=== PATIENT | male | born 1990 | race Caucasian/White ===

== ENCOUNTER → 2016-08-25 | Outpatient (CLI) | payer OTHER ==
[~2016-08-25] MED LIST: AMOX1TAB16 PO; BACTDSB PO; CIPR-278 PO; MULT-71 PO; NITR50CA PO; RIFA300 PO
[2016-08-25 14:24] VITALS: BP 147/71
== END | disposition home or self-care (01) ==
LOC: HBOWC 14:08
PROVIDERS: ATTEND Emergency Medicine
DX: T86.821 Skin graft (allograft) (autograft) failure (principal); L89.314 Pressure ulcer of right buttock, stage 4; M86.8X8 Other osteomyelitis, other site; I10 Essential (primary) hypertension; G82.21 Paraplegia, complete; F17.210 Nicotine dependence, cigarettes, uncomplicated; Y83.2 Surgical operation with anastomosis, bypass or graft as the cause of abnormal reaction of the patient, or of later complication, without mention of misadventure at the time of the procedure
CPT/HCPCS: 97597

== ENCOUNTER → 2016-09-07 | Outpatient (CLI) | payer OTHER ==
[2016-09-07 14:44] VITALS: BP 137/73
== END | disposition home or self-care (01) ==
LOC: HBOWC 14:14
PROVIDERS: ATTEND Emergency Medicine
DX: T81.89XD Other complications of procedures, not elsewhere classified, subsequent encounter (principal); L89.314 Pressure ulcer of right buttock, stage 4; G82.20 Paraplegia, unspecified; I10 Essential (primary) hypertension; M86.8X8 Other osteomyelitis, other site; F17.210 Nicotine dependence, cigarettes, uncomplicated; Y83.8 Other surgical procedures as the cause of abnormal reaction of the patient, or of later complication, without mention of misadventure at the time of the procedure
CPT/HCPCS: 97597

== ENCOUNTER → 2016-09-21 | Outpatient (CLI) | payer OTHER ==
[~2016-09-21] MED LIST changes: -AMOX1TAB16 PO; -RIFA300 PO
[2016-09-21 14:35] VITALS: BP 145/65
== END | disposition home or self-care (01) ==
LOC: HBOWC 14:24
PROVIDERS: ATTEND Emergency Medicine
DX: T81.89XD Other complications of procedures, not elsewhere classified, subsequent encounter (principal); L89.314 Pressure ulcer of right buttock, stage 4; I10 Essential (primary) hypertension; F17.210 Nicotine dependence, cigarettes, uncomplicated; M86.8X7 Other osteomyelitis, ankle and foot; G82.20 Paraplegia, unspecified; Y83.8 Other surgical procedures as the cause of abnormal reaction of the patient, or of later complication, without mention of misadventure at the time of the procedure
CPT/HCPCS: 97597

== ENCOUNTER → 2016-10-05 | Outpatient (CLI) | payer OTHER ==
[~2016-10-05] MED LIST changes: +AMOX1TAB16 PO; +RIFA300 PO
[2016-10-05 15:35] VITALS: BP 130/57
== END | disposition home or self-care (01) ==
LOC: HBOWC 14:31
PROVIDERS: ATTEND Emergency Medicine
DX: L89.314 Pressure ulcer of right buttock, stage 4 (principal); F17.210 Nicotine dependence, cigarettes, uncomplicated; G82.20 Paraplegia, unspecified; I10 Essential (primary) hypertension; M86.8X7 Other osteomyelitis, ankle and foot
CPT/HCPCS: 97597

== ENCOUNTER → 2016-10-19 | Outpatient (CLI) | payer OTHER ==
[~2016-10-19] MED LIST changes: -AMOX1TAB16 PO; -RIFA300 PO
[2016-10-19 15:05] VITALS: BP 133/82
== END | disposition home or self-care (01) ==
LOC: HBOWC 14:51
PROVIDERS: ATTEND Emergency Medicine
DX: T81.89XD Other complications of procedures, not elsewhere classified, subsequent encounter (principal); L89.314 Pressure ulcer of right buttock, stage 4; G82.20 Paraplegia, unspecified; I10 Essential (primary) hypertension; M86.8X7 Other osteomyelitis, ankle and foot; F17.210 Nicotine dependence, cigarettes, uncomplicated; Y83.8 Other surgical procedures as the cause of abnormal reaction of the patient, or of later complication, without mention of misadventure at the time of the procedure
CPT/HCPCS: 97597

== ENCOUNTER → 2016-11-02 | Outpatient (CLI) | payer OTHER ==
[~2016-11-02] MED LIST changes: +AMOX1TAB16 PO; -CIPR-278 PO
[2016-11-02 10:50] VITALS: BP 152/68
== END | disposition home or self-care (01) ==
LOC: HBOWC 10:03
PROVIDERS: ATTEND Emergency Medicine Undersea and Hyperbaric Medicine
DX: T81.89XD Other complications of procedures, not elsewhere classified, subsequent encounter (principal); L89.314 Pressure ulcer of right buttock, stage 4; I10 Essential (primary) hypertension; I48.91 Unspecified atrial fibrillation; M86.8X7 Other osteomyelitis, ankle and foot; M86.8X8 Other osteomyelitis, other site; G82.20 Paraplegia, unspecified; F17.210 Nicotine dependence, cigarettes, uncomplicated; Y83.8 Other surgical procedures as the cause of abnormal reaction of the patient, or of later complication, without mention of misadventure at the time of the procedure
CPT/HCPCS: 97597

== ENCOUNTER → 2016-11-16 | Outpatient (CLI) | payer OTHER ==
[~2016-11-16] MED LIST changes: -AMOX1TAB16 PO; +RIFA300 PO
[2016-11-16 16:19] VITALS: BP 113/59
== END | disposition home or self-care (01) ==
LOC: HBOWC 13:58
PROVIDERS: ATTEND Emergency Medicine
DX: T86.821 Skin graft (allograft) (autograft) failure (principal); L89.314 Pressure ulcer of right buttock, stage 4; M86.8X7 Other osteomyelitis, ankle and foot; G82.20 Paraplegia, unspecified; I48.91 Unspecified atrial fibrillation; F17.210 Nicotine dependence, cigarettes, uncomplicated; I10 Essential (primary) hypertension; Y83.2 Surgical operation with anastomosis, bypass or graft as the cause of abnormal reaction of the patient, or of later complication, without mention of misadventure at the time of the procedure
CPT/HCPCS: 97597

== ENCOUNTER → 2016-12-01 | Outpatient (CLI) | payer OTHER ==
[2016-12-01 15:43] VITALS: BP 109/62
== END | disposition home or self-care (01) ==
LOC: HBOWC 13:55
PROVIDERS: ATTEND Emergency Medicine
DX: T81.89XD Other complications of procedures, not elsewhere classified, subsequent encounter (principal); L89.154 Pressure ulcer of sacral region, stage 4; M46.28 Osteomyelitis of vertebra, sacral and sacrococcygeal region; G82.20 Paraplegia, unspecified; I10 Essential (primary) hypertension; M86.8X7 Other osteomyelitis, ankle and foot; I48.91 Unspecified atrial fibrillation; F17.210 Nicotine dependence, cigarettes, uncomplicated; Y83.8 Other surgical procedures as the cause of abnormal reaction of the patient, or of later complication, without mention of misadventure at the time of the procedure
CPT/HCPCS: 97597

== ENCOUNTER → 2016-12-15 | Outpatient (CLI) | payer OTHER ==
[2016-12-15 15:20] VITALS: BP 117/55
== END | disposition home or self-care (01) ==
LOC: HBOWC 14:50
PROVIDERS: ATTEND Emergency Medicine
DX: L89.314 Pressure ulcer of right buttock, stage 4 (principal); I10 Essential (primary) hypertension; M46.28 Osteomyelitis of vertebra, sacral and sacrococcygeal region; G82.20 Paraplegia, unspecified; I48.91 Unspecified atrial fibrillation; M86.8X7 Other osteomyelitis, ankle and foot; F17.200 Nicotine dependence, unspecified, uncomplicated
CPT/HCPCS: 97597

== ENCOUNTER → 2017-01-05 | Outpatient (CLI) | payer OTHER ==
[2017-01-05 15:09] VITALS: BP 106/57
== END | disposition home or self-care (01) ==
LOC: HBOWC 14:30
PROVIDERS: ATTEND Emergency Medicine
DX: L89.314 Pressure ulcer of right buttock, stage 4 (principal); I10 Essential (primary) hypertension; M46.28 Osteomyelitis of vertebra, sacral and sacrococcygeal region; G82.20 Paraplegia, unspecified; I48.91 Unspecified atrial fibrillation; F17.210 Nicotine dependence, cigarettes, uncomplicated

== ENCOUNTER → 2017-01-19 | Outpatient (CLI) | payer OTHER ==
[2017-01-19 15:28] VITALS: BP 143/67
== END | disposition home or self-care (01) ==
LOC: HBOWC 13:47
PROVIDERS: ATTEND Emergency Medicine Undersea and Hyperbaric Medicine
DX: L89.314 Pressure ulcer of right buttock, stage 4 (principal); I48.91 Unspecified atrial fibrillation; G82.20 Paraplegia, unspecified; M46.28 Osteomyelitis of vertebra, sacral and sacrococcygeal region; M86.8X7 Other osteomyelitis, ankle and foot; I10 Essential (primary) hypertension; F17.210 Nicotine dependence, cigarettes, uncomplicated
CPT/HCPCS: 97597

== ENCOUNTER → 2017-02-03 | Outpatient (CLI) | payer OTHER ==
[~2017-02-03] MED LIST changes: +AMOX1TAB16 PO; +CIPR-278 PO; +HYDR-3114 PO; +NITR100C13 PO; +NOCURR; +PENI250T4 PO
[2017-02-03 14:09] VITALS: BP 135/81
== END | disposition home or self-care (01) ==
LOC: HBOWC 13:54
PROVIDERS: ATTEND Emergency Medicine
DX: T81.89XD Other complications of procedures, not elsewhere classified, subsequent encounter (principal); L89.314 Pressure ulcer of right buttock, stage 4; I10 Essential (primary) hypertension; M46.28 Osteomyelitis of vertebra, sacral and sacrococcygeal region; M86.8X7 Other osteomyelitis, ankle and foot; G82.20 Paraplegia, unspecified; I48.91 Unspecified atrial fibrillation; F17.210 Nicotine dependence, cigarettes, uncomplicated; Y83.8 Other surgical procedures as the cause of abnormal reaction of the patient, or of later complication, without mention of misadventure at the time of the procedure

== ENCOUNTER → 2017-02-17 | Outpatient (CLI) | payer OTHER ==
[~2017-02-17] MED LIST changes: -AMOX1TAB16 PO; -CIPR-278 PO; -HYDR-3114 PO; -NITR100C13 PO; -NOCURR; -PENI250T4 PO
[2017-02-17 13:48] VITALS: BP 139/73
== END | disposition home or self-care (01) ==
LOC: HBOWC 13:36
PROVIDERS: ATTEND Emergency Medicine
DX: T81.89XD Other complications of procedures, not elsewhere classified, subsequent encounter (principal); L89.314 Pressure ulcer of right buttock, stage 4; G82.20 Paraplegia, unspecified; I10 Essential (primary) hypertension; M46.28 Osteomyelitis of vertebra, sacral and sacrococcygeal region; M86.8X7 Other osteomyelitis, ankle and foot; I48.91 Unspecified atrial fibrillation; F17.210 Nicotine dependence, cigarettes, uncomplicated; Y83.8 Other surgical procedures as the cause of abnormal reaction of the patient, or of later complication, without mention of misadventure at the time of the procedure

== ENCOUNTER → 2017-03-02 | Outpatient (CLI) | payer OTHER ==
[~2017-03-02] MED LIST changes: -MULT-71 PO; +MULT1TAB70 PO
[2017-03-02 14:59] VITALS: BP 135/63
== END | disposition home or self-care (01) ==
LOC: HBOWC 14:37
PROVIDERS: ATTEND Emergency Medicine
DX: L89.314 Pressure ulcer of right buttock, stage 4 (principal); M46.28 Osteomyelitis of vertebra, sacral and sacrococcygeal region; G82.20 Paraplegia, unspecified; I48.91 Unspecified atrial fibrillation; I10 Essential (primary) hypertension; F17.210 Nicotine dependence, cigarettes, uncomplicated

== ENCOUNTER → 2017-03-16 | Outpatient (CLI) | payer OTHER ==
[2017-03-16 14:56] VITALS: BP 112/60
== END | disposition home or self-care (01) ==
LOC: HBOWC 14:33
PROVIDERS: ATTEND Emergency Medicine
DX: T81.89XD Other complications of procedures, not elsewhere classified, subsequent encounter (principal); L89.314 Pressure ulcer of right buttock, stage 4; I10 Essential (primary) hypertension; G82.20 Paraplegia, unspecified; M46.28 Osteomyelitis of vertebra, sacral and sacrococcygeal region; I48.91 Unspecified atrial fibrillation; M86.8X7 Other osteomyelitis, ankle and foot; F17.210 Nicotine dependence, cigarettes, uncomplicated; Y83.8 Other surgical procedures as the cause of abnormal reaction of the patient, or of later complication, without mention of misadventure at the time of the procedure

== ENCOUNTER → 2017-03-30 | Outpatient (CLI) | payer OTHER ==
[2017-03-30 15:43] VITALS: BP 123/71
== END | disposition home or self-care (01) ==
LOC: HBOWC 14:37
PROVIDERS: ATTEND Emergency Medicine
DX: L89.314 Pressure ulcer of right buttock, stage 4 (principal); M46.28 Osteomyelitis of vertebra, sacral and sacrococcygeal region; G82.20 Paraplegia, unspecified; I48.91 Unspecified atrial fibrillation; I10 Essential (primary) hypertension; F17.210 Nicotine dependence, cigarettes, uncomplicated

== ENCOUNTER → 2017-04-11 | Outpatient (CLI) | payer OTHER ==
[2017-04-11 14:56] VITALS: BP 155/66
== END | disposition home or self-care (01) ==
LOC: HBOWC 14:22
PROVIDERS: ATTEND Emergency Medicine
DX: L89.314 Pressure ulcer of right buttock, stage 4 (principal); M46.28 Osteomyelitis of vertebra, sacral and sacrococcygeal region; I48.91 Unspecified atrial fibrillation; I10 Essential (primary) hypertension; F17.210 Nicotine dependence, cigarettes, uncomplicated
CPT/HCPCS: 11042

== ENCOUNTER → 2017-04-25 | Outpatient (CLI) | payer OTHER ==
[~2017-04-25] MED LIST changes: -BACTDSB PO; +GENT30CR TP
[2017-04-25 15:21] VITALS: BP 154/67
== END | disposition home or self-care (01) ==
LOC: HBOWC 14:35
PROVIDERS: ATTEND Emergency Medicine
DX: L89.314 Pressure ulcer of right buttock, stage 4 (principal); G82.20 Paraplegia, unspecified; I10 Essential (primary) hypertension; I48.91 Unspecified atrial fibrillation; M86.8X7 Other osteomyelitis, ankle and foot; M46.28 Osteomyelitis of vertebra, sacral and sacrococcygeal region; F17.210 Nicotine dependence, cigarettes, uncomplicated
CPT/HCPCS: 11042

== ENCOUNTER → 2017-05-12 | Outpatient (CLI) | payer OTHER ==
[2017-05-12 13:36] VITALS: BP 103/69
== END | disposition home or self-care (01) ==
LOC: HBOWC 11:22
PROVIDERS: ATTEND Emergency Medicine
DX: L89.314 Pressure ulcer of right buttock, stage 4 (principal); I10 Essential (primary) hypertension; I48.91 Unspecified atrial fibrillation; G82.20 Paraplegia, unspecified; M46.28 Osteomyelitis of vertebra, sacral and sacrococcygeal region; M86.8X7 Other osteomyelitis, ankle and foot; F17.210 Nicotine dependence, cigarettes, uncomplicated
CPT/HCPCS: 11042

== ENCOUNTER → 2017-05-26 | Outpatient (CLI) | payer OTHER ==
[2017-05-26 11:52] VITALS: BP 103/54
== END | disposition home or self-care (01) ==
LOC: HBOWC 10:14
PROVIDERS: ATTEND Emergency Medicine
DX: L89.314 Pressure ulcer of right buttock, stage 4 (principal); I10 Essential (primary) hypertension; I48.91 Unspecified atrial fibrillation; M46.28 Osteomyelitis of vertebra, sacral and sacrococcygeal region; M86.8X7 Other osteomyelitis, ankle and foot; G82.20 Paraplegia, unspecified; F17.210 Nicotine dependence, cigarettes, uncomplicated
CPT/HCPCS: 11042

== ENCOUNTER → 2017-06-19 | Outpatient (CLI) | payer OTHER ==
[2017-06-19 10:44] VITALS: BP 148/84
== END | disposition home or self-care (01) ==
LOC: HBOWC 10:00
PROVIDERS: ATTEND Surgery Plastic and Reconstructive Surgery
DX: L89.314 Pressure ulcer of right buttock, stage 4 (principal); I10 Essential (primary) hypertension; I48.91 Unspecified atrial fibrillation; M46.28 Osteomyelitis of vertebra, sacral and sacrococcygeal region; M86.8X7 Other osteomyelitis, ankle and foot; G82.20 Paraplegia, unspecified; F17.210 Nicotine dependence, cigarettes, uncomplicated
CPT/HCPCS: 11044

== ENCOUNTER → 2017-07-20 | Outpatient (CLI) | payer OTHER ==
[2017-07-20 13:46] VITALS: BP 138/79
== END | disposition home or self-care (01) ==
LOC: HBOWC 13:18
PROVIDERS: ATTEND Nurse Practitioner Adult Health
DX: T81.89XD Other complications of procedures, not elsewhere classified, subsequent encounter (principal); L89.314 Pressure ulcer of right buttock, stage 4; I10 Essential (primary) hypertension; G82.20 Paraplegia, unspecified; M86.8X7 Other osteomyelitis, ankle and foot; I48.91 Unspecified atrial fibrillation; F17.210 Nicotine dependence, cigarettes, uncomplicated; Y83.8 Other surgical procedures as the cause of abnormal reaction of the patient, or of later complication, without mention of misadventure at the time of the procedure

== ENCOUNTER → 2017-08-03 | Outpatient (CLI) | payer OTHER ==
[2017-08-03 11:00] VITALS: BP 148/93
== END | disposition home or self-care (01) ==
LOC: HBOWC 10:59
PROVIDERS: ATTEND Nurse Practitioner Adult Health
DX: L89.314 Pressure ulcer of right buttock, stage 4 (principal); F17.210 Nicotine dependence, cigarettes, uncomplicated; M86.8X7 Other osteomyelitis, ankle and foot; G82.20 Paraplegia, unspecified; I48.91 Unspecified atrial fibrillation; I10 Essential (primary) hypertension

== ENCOUNTER → 2017-08-24 | Outpatient (CLI) | payer OTHER ==
[~2017-08-24] MED LIST changes: -GENT30CR TP; +LIDOCAINE HCL 2% 5 ML JELLY TP ONE; -NITR50CA PO; -RIFA300 PO
[2017-08-24 08:35] VITALS: BP 126/61
== END | disposition home or self-care (01) ==
LOC: HBOWC 08:03
PROVIDERS: ATTEND Nurse Practitioner Adult Health
DX: L89.314 Pressure ulcer of right buttock, stage 4 (principal); I48.91 Unspecified atrial fibrillation; M86.8X7 Other osteomyelitis, ankle and foot; I10 Essential (primary) hypertension; F17.210 Nicotine dependence, cigarettes, uncomplicated

== ENCOUNTER → 2018-10-22 | Outpatient (CLI) | payer OTHER ==
[~2018-10-22] MED LIST changes: -LIDOCAINE HCL 2% 5 ML JELLY TP ONE
[2018-10-22 11:53] VITALS: BP 134/81
== END | disposition home or self-care (01) ==
LOC: HBOWC 11:07
PROVIDERS: ATTEND Surgery Plastic and Reconstructive Surgery
DX: L89.314 Pressure ulcer of right buttock, stage 4 (principal); I10 Essential (primary) hypertension; G82.20 Paraplegia, unspecified; M86.8X7 Other osteomyelitis, ankle and foot; I48.91 Unspecified atrial fibrillation; M46.28 Osteomyelitis of vertebra, sacral and sacrococcygeal region; F17.210 Nicotine dependence, cigarettes, uncomplicated
CPT/HCPCS: 11043

== ENCOUNTER → 2018-10-29 | Outpatient (CLI) | payer OTHER ==
[2018-10-29 11:10] VITALS: BP 138/78
== END | disposition home or self-care (01) ==
LOC: HBOWC 10:51
PROVIDERS: ATTEND Surgery Plastic and Reconstructive Surgery
DX: L89.314 Pressure ulcer of right buttock, stage 4 (principal); I10 Essential (primary) hypertension; G82.20 Paraplegia, unspecified; M46.28 Osteomyelitis of vertebra, sacral and sacrococcygeal region; M86.8X7 Other osteomyelitis, ankle and foot; I48.91 Unspecified atrial fibrillation; F17.210 Nicotine dependence, cigarettes, uncomplicated
CPT/HCPCS: 11043

== ENCOUNTER → 2018-11-26 | Outpatient (CLI) | payer OTHER ==
[2018-11-26 11:45] VITALS: BP 128/55
== END | disposition home or self-care (01) ==
LOC: HBOWC 11:46
PROVIDERS: ATTEND Surgery Plastic and Reconstructive Surgery
DX: L89.314 Pressure ulcer of right buttock, stage 4 (principal); I10 Essential (primary) hypertension; G82.20 Paraplegia, unspecified; M46.28 Osteomyelitis of vertebra, sacral and sacrococcygeal region; M86.8X7 Other osteomyelitis, ankle and foot; I48.91 Unspecified atrial fibrillation; F17.210 Nicotine dependence, cigarettes, uncomplicated
CPT/HCPCS: 11043

== ENCOUNTER → 2018-12-17 | Outpatient (CLI) | payer OTHER ==
[2018-12-17 11:10] VITALS: BP 149/75
== END | disposition home or self-care (01) ==
LOC: HBOWC 10:53
PROVIDERS: ATTEND Surgery Plastic and Reconstructive Surgery
DX: L89.314 Pressure ulcer of right buttock, stage 4 (principal); I10 Essential (primary) hypertension; G82.20 Paraplegia, unspecified; M46.28 Osteomyelitis of vertebra, sacral and sacrococcygeal region; M86.8X7 Other osteomyelitis, ankle and foot; I48.91 Unspecified atrial fibrillation; F17.210 Nicotine dependence, cigarettes, uncomplicated
CPT/HCPCS: 11043

== ENCOUNTER 2019-01-05 19:28 | Emergency (ER) | payer OTHER ==
[~2019-01-05] VITALS: Ht 180.3 cm; Wt 97.7 kg
[2019-01-05 22:41] LABS: APPEARANCE,URINE CLOUDY (CLEAR); BILIRUBIN,URINE NEGATIVE (NEGATIVE); GLUCOSE, URINE (UA) NEGATIVE (NEGATIVE); KETONES,URINE NEGATIVE (NEGATIVE); LEUKOCYTE ESTERASE ,URINE LARGE (NEGATIVE); NITRATE,URINE POSITIVE (NEGATIVE); OCCULT BLOOD,URINE SMALL (NEGATIVE); PROTEIN,URINE NEGATIVE (NEGATIVE)
[2019-01-05 22:45] VITALS: BP 119/78
[2019-01-05 22:58] LABS: BACTERIA,URINE Rare /HPF (None Seen); SQUAMOUS EPITHELIAL CELL,UR Rare /LPF (None Seen); WBC,URINE 51-100 /HPF (0-5)
[2019-01-05] MEDS ORDERED: LIDOCAINE/PF 1% 2 ML VIAL IM ONE (23:15)
[2019-01-05] MEDS ORDERED: CefTRIAXone SODIUM 1 GM/VIAL IM ONE (23:15)
== END 2019-01-05 23:21 | disposition home or self-care (01) ==
LOC: EMS 19:28
DX: N39.0 Urinary tract infection, site not specified (principal); F17.210 Nicotine dependence, cigarettes, uncomplicated
CPT/HCPCS: 81001; 81002; 87077; 87086; 96372; 99283; J0696; J3490

== ENCOUNTER 2020-01-14 14:36 | Emergency (ER) | payer OTHER ==
[~2020-01-14] VITALS: Ht 175.3 cm; Wt 100.0 kg
[~2020-01-14 14:36] MED LIST changes: +MULT-660 PO; -MULT1TAB70 PO
[2020-01-14 16:05] LABS: BASOPHILS % (AUTO) 0.4 % (0.0-2.0); EOSINOPHILS % (AUTO) 2.2 % (1.0-6.0); HEMATOCRIT 44.5 % (41-53); HEMOGLOBIN 15.1 g/dL (13.5-17.5); LYMPHOCYTES # (AUTO) 1.4 K/uL (1.0-4.8); LYMPHOCYTES % (AUTO) 15.2 % (22.0-44.0); MEAN CORPUSCULAR HEMOGLOBIN 28.5 pg (26.0-34.0); MEAN CORPUSCULAR HGB CONC 33.9 G/dL (31.0-37.0); MEAN CORPUSCULAR VOLUME 84 fL (80-100); MONOCYTES # (AUTO) 0.7 K/uL (0.1-1.0); MONOCYTES % (AUTO) 7.3 % (2.0-9.0); NEUTROPHILS # (AUTO) 6.7 K/uL (1.8-7.7); NEUTROPHILS % (AUTO) 74.9 % (40.0-70.0); PLATELET COUNT (AUTO) 349 K/uL (150-450); RED BLOOD CELL COUNT(AUTO) 5.29 MIL/uL (4.50-5.90); RED CELL DISTRIBUTION WIDTH 14.4 % (11.5-14.5)
[2020-01-14 16:12] LABS: APPEARANCE,URINE CLEAR (CLEAR); BILIRUBIN,URINE NEGATIVE (NEGATIVE); GLUCOSE, URINE (UA) NEGATIVE (NEGATIVE); KETONES,URINE NEGATIVE (NEGATIVE); LEUKOCYTE ESTERASE ,URINE SMALL (NEGATIVE); NITRATE,URINE NEGATIVE (NEGATIVE); OCCULT BLOOD,URINE MODERATE (NEGATIVE); PH,URINE 6.5 (5.0-8.0); PROTEIN,URINE NEGATIVE (NEGATIVE); UROBILINOGEN,URINE 0.2 mg/dL (<=1.0)
[2020-01-14 16:15] LABS: ANION GAP 14 mmol/L (8-16); CALCIUM, TOTAL 9.1 mg/dL (8.8-10.5); CARBON DIOXIDE 25 mmol/L (22-29); CHLORIDE 102 mmol/L (98-107); CREATININE 0.48 mg/dL (0.60-1.30); GLOMERULAR FILTR. RATE CALC > 60 mL/min (>60); GLUCOSE,RANDOM 100 mg/dL (70-110); POTASSIUM 3.8 mmol/L (3.5-5.1); SODIUM SERUM 141 mmol/L (136-145); UREA NITROGEN, BLOOD 7 mg/dL (7-18)
[2020-01-14 16:21] LABS: ALANINE AMINOTRANSFERASE 49 U/L (12-78); ALBUMIN 3.8 g/dL (3.4-5.0); ALKALINE PHOSPHATASE 77 U/L (46-116); ASPARTATE AMINOTRANSFERASE 21 U/L (15-37); BILIRUBIN,TOTAL 0.4 mg/dL (0.1-1.0); LIPASE 89 U/L (73-393); TOTAL PROTEIN, SERUM 8.6 g/dL (6.4-8.2)
[2020-01-14 16:23] LABS: LACTIC ACID 0.7 mmol/L (0.4-2.0)
[2020-01-14 16:46] LABS: BACTERIA,URINE None Seen /HPF (None Seen)
[2020-01-14 17:55] VITALS: BP 144/76
== END 2020-01-14 18:20 | disposition home or self-care (01) ==
LOC: EMS 14:40
DX: N39.0 Urinary tract infection, site not specified (principal); F17.210 Nicotine dependence, cigarettes, uncomplicated
CPT/HCPCS: 83605

== ENCOUNTER 2020-05-10 10:47 | Emergency (ER) | payer OTHER ==
[~2020-05-10] VITALS: Ht 172.7 cm; Wt 77.3 kg
[2020-05-10] MEDS ORDERED: SODIUM CHLORIDE 0.9% 100 ML ONE (12:02)
[2020-05-10] MEDS ORDERED: IOVERSOL 320 MG/ML 100 ML VIAL ONE (12:02)
[2020-05-10] MEDS ORDERED: SODIUM CHLORIDE 0.9% 1,000 ML IV ONE (12:15)
[2020-05-10 12:27] LABS: BASOPHILS % (AUTO) 0.6 % (0.0-2.0); EOSINOPHILS % (AUTO) 1.9 % (1.0-6.0); HEMATOCRIT 46.9 % (41-53); HEMOGLOBIN 15.6 g/dL (13.5-17.5); LYMPHOCYTES # (AUTO) 1.9 K/uL (1.0-4.8); LYMPHOCYTES % (AUTO) 21.5 % (22.0-44.0); MEAN CORPUSCULAR HGB CONC 33.3 G/dL (31.0-37.0); MEAN CORPUSCULAR VOLUME 81 fL (80-100); MONOCYTES # (AUTO) 0.7 K/uL (0.1-1.0); MONOCYTES % (AUTO) 7.9 % (2.0-9.0); NEUTROPHILS % (AUTO) 68.1 % (40.0-70.0); PLATELET COUNT (AUTO) 321 K/uL (150-450); RED BLOOD CELL COUNT(AUTO) 5.79 MIL/uL (4.50-5.90); RED CELL DISTRIBUTION WIDTH 15.6 % (11.5-14.5)
[2020-05-10 12:40] LABS: ANION GAP 4 mmol/L (8-16); CALCIUM, TOTAL 9.7 mg/dL (8.8-10.5); CARBON DIOXIDE 32 mmol/L (22-29); CHLORIDE 102 mmol/L (98-107); CREATININE 0.63 mg/dL (0.60-1.30); GLOMERULAR FILTR. RATE CALC > 60 mL/min (>60); GLUCOSE,RANDOM 102 mg/dL (70-110); POTASSIUM 4.5 mmol/L (3.5-5.1); SODIUM SERUM 138 mmol/L (136-145); UREA NITROGEN, BLOOD 8 mg/dL (7-18)
[2020-05-10 12:45] LABS: ALANINE AMINOTRANSFERASE 31 U/L (12-78); ALBUMIN 3.9 g/dL (3.4-5.0); ALKALINE PHOSPHATASE 80 U/L (46-116); ASPARTATE AMINOTRANSFERASE 19 U/L (15-37); BILIRUBIN,TOTAL 0.3 mg/dL (0.1-1.0); TOTAL PROTEIN, SERUM 8.4 g/dL (6.4-8.2)
[2020-05-10 13:13] LABS: APPEARANCE,URINE CLOUDY (CLEAR); BILIRUBIN,URINE NEGATIVE (NEGATIVE); GLUCOSE, URINE (UA) NEGATIVE (NEGATIVE); KETONES,URINE NEGATIVE (NEGATIVE); LEUKOCYTE ESTERASE ,URINE LARGE (NEGATIVE); NITRATE,URINE POSITIVE (NEGATIVE); OCCULT BLOOD,URINE NEGATIVE (NEGATIVE); PROTEIN,URINE NEGATIVE (NEGATIVE); UROBILINOGEN,URINE 0.2 mg/dL (<=1.0)
[2020-05-10 13:23] LABS: BACTERIA,URINE Many /HPF (None Seen); RBC,URINE None Seen /HPF (0-2); WBC,URINE 26-50 /HPF (0-5)
[2020-05-10] MEDS ORDERED: LEVOFLOXACIN 750 MG TABLET PO ONE (14:15)
[2020-05-10 15:00] VITALS: BP 127/82
== END 2020-05-10 15:33 | disposition home or self-care (01) ==
LOC: EMS 10:48
DX: N39.0 Urinary tract infection, site not specified (principal); F17.210 Nicotine dependence, cigarettes, uncomplicated
CPT/HCPCS: 36415; 74177; 80053; 81001; 85025; 87086; 96360; 99285; J7050; Q9967

== ENCOUNTER 2022-01-11 12:55 | Emergency (ER) | payer OTHER ==
[~2022-01-11] VITALS: Ht 175.3 cm; Wt 100.0 kg
[~2022-01-11 12:55] MED LIST changes: +BACTDSB PO; +LISI-892 PO
[2022-01-11] MEDS ORDERED: HYDR-4584 PO (13:04)
[2022-01-11] MEDS ORDERED: 0.9% SODIUM CHLORIDE 10 ML SYRINGE IVP PRN (13:45)
[2022-01-11] MEDS ORDERED: SODIUM CHLORIDE 0.9% 3,000 ML IV ONE (13:45)
[2022-01-11] MEDS ORDERED: ACETAMINOPHEN 500 MG TABLET PO ONE (14:00)
[2022-01-11 14:01] LABS: BASOPHILS % (AUTO) 0.4 % (0.0-2.0); EOSINOPHILS % (AUTO) 1.9 % (1.0-6.0); HEMATOCRIT 39.7 % (41-53); HEMOGLOBIN 13.1 g/dL (13.5-17.5); LYMPHOCYTES # (AUTO) 0.4 K/uL (1.0-4.8); LYMPHOCYTES % (AUTO) 5.3 % (22.0-44.0); MEAN CORPUSCULAR HEMOGLOBIN 25.9 pg (26.0-34.0); MEAN CORPUSCULAR VOLUME 79 fL (80-100); MONOCYTES # (AUTO) 0.7 K/uL (0.1-1.0); MONOCYTES % (AUTO) 8.9 % (2.0-9.0); NEUTROPHILS # (AUTO) 6.2 K/uL (1.8-7.7); NEUTROPHILS % (AUTO) 83.5 % (40.0-70.0); PLATELET COUNT (AUTO) 167 K/uL (150-450); RED BLOOD CELL COUNT(AUTO) 5.05 MIL/uL (4.50-5.90); RED CELL DISTRIBUTION WIDTH 15.3 % (11.5-14.5)
[2022-01-11 14:08] LABS: ANION GAP 11 mmol/L (8-16); CALCIUM, TOTAL 8.6 mg/dL (8.8-10.5); CARBON DIOXIDE 26 mmol/L (22-29); CHLORIDE 99 mmol/L (98-107); GLOMERULAR FILTR. RATE CALC > 60 mL/min (>60); GLUCOSE,RANDOM 143 mg/dL (70-110); POTASSIUM 3.4 mmol/L (3.5-5.1); SODIUM SERUM 136 mmol/L (136-145); UREA NITROGEN, BLOOD 8 mg/dL (7-18)
[2022-01-11 14:19] LABS: LACTIC ACID 0.8 mmol/L (0.4-2.0)
[2022-01-11 14:32] LABS: ALANINE AMINOTRANSFERASE 29 U/L (12-78); ALBUMIN 3.4 g/dL (3.4-5.0); ALKALINE PHOSPHATASE 83 U/L (46-116); ASPARTATE AMINOTRANSFERASE 16 U/L (15-37); BILIRUBIN,TOTAL 0.3 mg/dL (0.1-1.0); CREATINE KINASE, TOTAL ONLY 112 U/L (39-308); TOTAL PROTEIN, SERUM 8.2 g/dL (6.4-8.2)
[2022-01-11 14:38] LABS: COVID AG,FIA SOURCE NASAL SWAB
[2022-01-11 14:58] LABS: INFLUENZA TYPE A NEGATIVE FOR TYPE A (NEGATIVE); INFLUENZA TYPE B NEGATIVE FOR TYPE B (NEGATIVE)
[2022-01-11 14:59] LABS: APPEARANCE,URINE CLEAR (CLEAR); BILIRUBIN,URINE NEGATIVE (NEGATIVE); GLUCOSE, URINE (UA) NEGATIVE (NEGATIVE); KETONES,URINE NEGATIVE (NEGATIVE); LEUKOCYTE ESTERASE ,URINE TRACE (NEGATIVE); NITRATE,URINE NEGATIVE (NEGATIVE); OCCULT BLOOD,URINE NEGATIVE (NEGATIVE); PROTEIN,URINE NEGATIVE (NEGATIVE); SPECIFIC GRAVITIY, URINE 1.009 (1.003-1.030); UROBILINOGEN,URINE <=1.0 mg/dL (<=1.0)
[2022-01-11 15:24] LABS: RBC,URINE 0-2 /HPF (0-2)
[2022-01-11 15:25] LABS: BACTERIA,URINE None Seen /HPF (None Seen); SQUAMOUS EPITHELIAL CELL,UR Rare /LPF (None Seen)
[2022-01-11] MEDS ORDERED: POTASSIUM CHLORIDE 20 MEQ ER TABLET PO ONE (16:30)
[2022-01-11 17:13] VITALS: BP 128/62
[2022-01-11] MEDS ORDERED: DOXY-354 PO (17:13)
[2022-01-11] MEDS ORDERED: CefTRIAXone 1 GM/DEXTROSE 50 ML IV ONE (17:15)
[2022-01-11] MEDS ORDERED: DOXYCYCLINE HYCLATE 100 MG TABLET PO ONE (17:15)
== END 2022-01-11 19:16 | disposition home or self-care (01) ==
LOC: EMS 12:55
DX: L02.31 Cutaneous abscess of buttock (principal); G82.20 Paraplegia, unspecified; I10 Essential (primary) hypertension; Z79.899 Other long term (current) drug therapy; Z20.822 Contact with and (suspected) exposure to COVID-19
CPT/HCPCS: 36415; 80053; 81001; 82550; 83605; 85025; 87040; 87426; 87804; 93005; 96361; 96365; 99284; J0696

== ENCOUNTER 2022-02-04 09:52 | Emergency (ER) | payer OTHER ==
[~2022-02-04] VITALS: Ht 177.8 cm; Wt 100.0 kg
[~2022-02-04 09:52] MED LIST changes: +DOXY-354 PO; +HYDR-4584 PO; -LISI-892 PO
[2022-02-04 10:51] LABS: APPEARANCE,URINE HAZY (CLEAR); BILIRUBIN,URINE NEGATIVE (NEGATIVE); GLUCOSE, URINE (UA) NEGATIVE (NEGATIVE); KETONES,URINE NEGATIVE (NEGATIVE); LEUKOCYTE ESTERASE ,URINE LARGE (NEGATIVE); NITRATE,URINE NEGATIVE (NEGATIVE); OCCULT BLOOD,URINE SMALL (NEGATIVE); PROTEIN,URINE 30-70 mg/dL (NEGATIVE); SPECIFIC GRAVITIY, URINE 1.022 (1.003-1.030)
[2022-02-04 11:03] LABS: BACTERIA,URINE Few /HPF (None Seen); SQUAMOUS EPITHELIAL CELL,UR Rare /LPF (None Seen)
[2022-02-04 11:24] LABS: BASOPHILS % (AUTO) 0.6 % (0.0-2.0); HEMATOCRIT 40.1 % (41-53); HEMOGLOBIN 13.3 g/dL (13.5-17.5); LYMPHOCYTES # (AUTO) 1.8 K/uL (1.0-4.8); LYMPHOCYTES % (AUTO) 25.4 % (22.0-44.0); MEAN CORPUSCULAR HEMOGLOBIN 26.1 pg (26.0-34.0); MEAN CORPUSCULAR VOLUME 79 fL (80-100); MONOCYTES # (AUTO) 0.8 K/uL (0.1-1.0); MONOCYTES % (AUTO) 10.4 % (2.0-9.0); NEUTROPHILS # (AUTO) 4.3 K/uL (1.8-7.7); NEUTROPHILS % (AUTO) 59.6 % (40.0-70.0); PLATELET COUNT (AUTO) 313 K/uL (150-450); RED BLOOD CELL COUNT(AUTO) 5.07 MIL/uL (4.50-5.90); RED CELL DISTRIBUTION WIDTH 15.5 % (11.5-14.5)
[2022-02-04 11:47] LABS: ANION GAP 8 mmol/L (8-16); CALCIUM, TOTAL 9.3 mg/dL (8.8-10.5); CARBON DIOXIDE 28 mmol/L (22-29); CHLORIDE 101 mmol/L (98-107); CREATININE 0.55 mg/dL (0.60-1.30); GLUCOSE,RANDOM 98 mg/dL (70-110); POTASSIUM 3.6 mmol/L (3.5-5.1); SODIUM SERUM 137 mmol/L (136-145); UREA NITROGEN, BLOOD 8 mg/dL (7-18)
[2022-02-04 11:48] LABS: GLOMERULAR FILTR. RATE CALC > 60 mL/min (>60)
[2022-02-04 12:03] LABS: ALANINE AMINOTRANSFERASE 29 U/L (12-78); ALBUMIN 3.3 g/dL (3.4-5.0); ALKALINE PHOSPHATASE 106 U/L (46-116); ASPARTATE AMINOTRANSFERASE 15 U/L (15-37); BILIRUBIN,TOTAL 0.4 mg/dL (0.1-1.0); TOTAL PROTEIN, SERUM 8.6 g/dL (6.4-8.2)
[2022-02-04] MEDS ORDERED: CefTRIAXone 1 GM/DEXTROSE 50 ML IV ONE (12:15)
[2022-02-04] MEDS ORDERED: LIDOCAINE/PF 1% 2 ML VIAL IM ONE (12:30)
[2022-02-04] MEDS ORDERED: CefTRIAXone SODIUM 1 GM/VIAL IM ONE (12:30)
[2022-02-04 12:33] VITALS: BP 126/82
[2022-02-04] MEDS ORDERED: CEFD300C3 PO (12:36)
== END 2022-02-04 13:39 | disposition home or self-care (01) ==
LOC: EMS 09:53
DX: N39.0 Urinary tract infection, site not specified (principal); I10 Essential (primary) hypertension
CPT/HCPCS: 99283; 80053; 81001; 85025; 87040; 36415; 87086; 96372; J0696; J3490; 51701

== ENCOUNTER 2022-04-18 16:37 | Emergency (ER) | payer OTHER ==
[~2022-04-18] VITALS: Ht 180.3 cm; Wt 102.3 kg
[~2022-04-18 16:37] MED LIST changes: -BACTDSB PO; +CEFD300C18 PO; -DOXY-354 PO; -HYDR-4584 PO; -MULT-660 PO
[2022-04-18 16:44] VITALS: BP 128/75
[2022-04-18 17:43] LABS: APPEARANCE,URINE HAZY (CLEAR); BILIRUBIN,URINE NEGATIVE (NEGATIVE); GLUCOSE, URINE (UA) NEGATIVE (NEGATIVE); KETONES,URINE NEGATIVE (NEGATIVE); LEUKOCYTE ESTERASE ,URINE LARGE (NEGATIVE); NITRATE,URINE NEGATIVE (NEGATIVE); OCCULT BLOOD,URINE NEGATIVE (NEGATIVE); PH,URINE 6.5 (5.0-8.0); PROTEIN,URINE NEGATIVE (NEGATIVE); SPECIFIC GRAVITIY, URINE 1.013 (1.003-1.030)
[2022-04-18 18:02] LABS: AMORPHOUS SEDIMENT,UR Few /LPF (None Seen); BACTERIA,URINE Moderate /HPF (None Seen); SQUAMOUS EPITHELIAL CELL,UR Few /LPF (None Seen); WBC,URINE 26-50 /HPF (0-5)
[2022-04-18] MEDS ORDERED: CEFDINIR 300 MG CAPSULE PO ONE (19:15)
[2022-04-18] MEDS ORDERED: CEFD300C18 PO (19:15)
== END 2022-04-18 19:41 | disposition home or self-care (01) ==
LOC: EMS 16:37
DX: N39.0 Urinary tract infection, site not specified (principal); G82.20 Paraplegia, unspecified; I10 Essential (primary) hypertension
CPT/HCPCS: 99283; 81001; 87086; Q9967; 87186

== ENCOUNTER 2022-05-03 12:34 | Emergency (ER) | payer OTHER ==
[~2022-05-03] VITALS: Ht 180.3 cm; Wt 104.5 kg
[2022-05-03 13:25] LABS: BILIRUBIN,URINE NEGATIVE (NEGATIVE); GLUCOSE, URINE (UA) NEGATIVE (NEGATIVE); KETONES,URINE NEGATIVE (NEGATIVE); LEUKOCYTE ESTERASE ,URINE LARGE (NEGATIVE); NITRATE,URINE POSITIVE (NEGATIVE); OCCULT BLOOD,URINE NEGATIVE (NEGATIVE); PH,URINE 5.5 (5.0-8.0); PROTEIN,URINE NEGATIVE (NEGATIVE); SPECIFIC GRAVITIY, URINE 1.021 (1.003-1.030); UROBILINOGEN,URINE <=1.0 mg/dL (<=1.0)
[2022-05-03 13:34] LABS: APPEARANCE,URINE HAZY (CLEAR); RBC,URINE None Seen /HPF (0-2)
[2022-05-03 13:35] LABS: BACTERIA,URINE Many /HPF (None Seen)
[2022-05-03 14:40] VITALS: BP 139/73
[2022-05-03] MEDS ORDERED: CIPROFLOXACIN HCL 250 MG TABLET PO ONE (15:30)
[2022-05-03] MEDS ORDERED: CIPR500T10 PO (15:32)
== END 2022-05-03 15:42 | disposition home or self-care (01) ==
LOC: EMS 12:42
DX: N39.0 Urinary tract infection, site not specified (principal); I10 Essential (primary) hypertension; G82.20 Paraplegia, unspecified; Z87.440 Personal history of urinary (tract) infections; Z98.890 Other specified postprocedural states
CPT/HCPCS: 81001; 87086; 87186; 99283